=== PATIENT | female | born 1985 | race Caucasian/White ===

== ENCOUNTER 2018-07-17 13:55 | Emergency (ER) | payer MEDICAID ==
[~2018-07-17] VITALS: Ht 154.9 cm; Wt 54.4 kg
[2018-07-17 14:41] VITALS: BP 114/77
[2018-07-17 14:55] LABS: APPEARANCE,URINE Clear (CLEAR); BILIRUBIN,URINE Negative (NEGATIVE); BLOOD, URINE Small Ery/uL (NEGATIVE); COLOR,URINE Yellow (YELLOW); KETONES,URINE Negative (NEGATIVE); LEUKOCYTE ESTERASE ,URINE Negative (NEGATIVE); NITRITE, URINE Negative (NEGATIVE); PH,URINE 5.5 (5.0-8.0); PROTEIN,URINE Negative (NEGATIVE); UGLUCOSE Negative (NEGATIVE); UROBILINOGEN,URINE 0.2 EU/dL (0.2)
[2018-07-17 14:57] LABS: BACTERIA,URINE Few /HPF (None Seen); SQUAMOUS EPITHELIAL CELL,UR Few /HPF (None Seen); WBC,URINE NONE SEEN /HPF (0-3)
== END 2018-07-17 15:42 | disposition home or self-care (01) ==
LOC: ER 14:02
DX: N30.00 Acute cystitis without hematuria (principal)
CPT/HCPCS: 81001; 84703; 99283; A4606; 81000-TC